=== PATIENT | male | born 1940 | race Caucasian/White ===

== ENCOUNTER 2019-07-06 08:39 | Outpatient (CLI) | payer MEDICARE, SELFPAY ==
--- NOTE | 2019-07-06 09:00 | NEURO_ITS ---
TEST: ELECTROENCEPHALOGRAM DIAGNOSIS: FOCAL SEIZURES PATIENT NUMBER: [id number] EEG NUMBER: [id number] RECORDING DATE: 07/06/19 CLINICAL HISTORY: Patient reports he was here in the hospital about 3 months ago with encephalopathy due to a UTI with possible seizure activity. Had 2 abnormal EEG?s then, was put on seizure medication and wants to come off of them. CONDITION OF RECORDING: Awake, drowsy and sleep EEG DESCRIPTION: Basic resting occipital frequency consists low voltage alpha and theta activity mixed with minimal amount of low voltage 15-18hz beta. During drowsiness low voltage beta activity is seen diffusely mixed with waxing and waning posterior alpha and theta rhythms. Bilateral symmetrical sleep activity is seen during sleep. Photic stimulation produced normal drive. Nonparoxysmal. Nonfocal. Nonlateralizing. IMPRESSION: No significant abnormalities noted except some slowing of the background rhythms. Clinical correlation recommended. [facility]
== END 2019-07-06 08:40 | disposition home or self-care (01) ==
PROVIDERS: PCP Family Medicine Adolescent Medicine; Visit Provider Family Medicine Adolescent Medicine
DX: G40.209 Localization-related (focal) (partial) symptomatic epilepsy and epileptic syndromes with complex partial seizures, not intractable, without status epilepticus (principal)
CPT/HCPCS: 95816